=== PATIENT | male | born 1965 | race Caucasian/White ===

== ENCOUNTER 2016-12-19 17:08 | Inpatient (IN) | payer OTHER ==
[~2016-12-19] VITALS: Ht 172.7 cm; Wt 50.0 kg
[~2016-12-19 17:08] MED LIST: CARVEDILOL12.5 MG PO; COMBIVENT RESPIM4 GM IH; FOLIC ACID1 MG PO; FUROSEMIDE40 MG PO; HYDROCHLOROTHIA25 MG PO; LISINOPRIL40 MG PO; OCEAN NASAL 0.645 ML BOTH NARES; Ocean Nasal 0.65% BOTH NARES; VICODIN 5-3001 EACH PO; VITAMIN B-1100 MG PO
[2016-12-19 18:23] LABS: HEMATOCRIT 44.6 % (38.0-50.0); MCH 29.8 PG (29.0-34.0); MCV 90.5 FL (86-99); MEAN PLAT.VOLUME 9.9 uM^3 (9.0-12.4); PLATELET COUNT 283 K/uL (156-360); RBC DIS.WIDTH-CV 13.1 % (11.8-14.6); RBC DIS.WIDTH-SD 43.2 % (39-53); RED BLOOD COUNT 4.93 M/uL (4.00-5.50); WHITE BLOOD COUNT 10.3 K/uL (4.1-10.2)
[2016-12-19 18:34] LABS: CHLORIDE 109 mEq/L (99-109); POTASSIUM 3.9 mEq/L (3.7-5.4); SODIUM 141 mEq/L (136-147)
[2016-12-19 18:35] LABS: GLUCOSE 101 mg/dL (70-99)
[2016-12-19 18:37] LABS: ANION GAP 10 MEQ/L (2-14)
[2016-12-19 18:39] LABS: GFR ESTIMATE (CALCULATED) 53 mL/min/
[2016-12-19 18:40] LABS: UREA NITROGEN (BUN) 21 mg/dL (9-23)
[2016-12-19 18:45] LABS: TROP-I INTERPRETATION NEGATIVE; TROPONIN-I < 0.01 ng/mL (0.0-0.30)
[2016-12-20] VITALS (8 sets, daily range): BP systolic 129–198; BP diastolic 65–98
[2016-12-20 01:39] LABS: HDL CHOLESTEROL 41 MG/DL (Desirable>=40); LDL CHOLESTEROL 162 mg/dL (Desirable<100); NON-HDL CHOLESTEROL 197 mg/dL (Desirable<160); TOTAL CHOLESTEROL 238 mg/dL (Desirable<200); TRIGLYCERIDES 176 MG/DL (Normal: <150)
[2016-12-20 06:12] LABS: ADD MIUA? YES; BILIRUBIN NEGATIVE; BLOOD SMALL; COLOR STRAW ((YELLOW)); GLUCOSE (STRIP) NEGATIVE; KETONES NEGATIVE; LEUKOCYTES NEGATIVE; NITRITE NEGATIVE; PROTEIN (STRIP) NEGATIVE; SPECIFIC GRAVITY 1.006 (1.000-1.030); UROBILINOGEN 0.2 MG/DL (0.2-1.0)
[2016-12-20 06:18] LABS: BACTERIA NONE SEEN /HPF; EPITHELIAL CELLS NONE SEEN /HPF; MUCUS TRACE /LPF; RED BLOOD CELLS 0-5 /HPF (0-5); WHITE BLOOD CELLS 0-5 /HPF (0-5)
[2016-12-20 07:21] LABS: Estimated Average Glucose 103 mg/dL (70-123); HEMOGLOBIN A1c (GLYCOHEMOGLOB) 5.2 % HGB (Below 5.7)
[2016-12-20 07:22] LABS: HEMATOCRIT 39.4 % (38.0-50.0); MCH 30.5 PG (29.0-34.0); MCHC 32.7 G/DL (30.0-36.0); MCV 93.1 FL (86-99); MEAN PLAT.VOLUME 10.1 uM^3 (9.0-12.4); PLATELET COUNT 247 K/uL (156-360); RBC DIS.WIDTH-CV 13.2 % (11.8-14.6); RBC DIS.WIDTH-SD 44.8 % (39-53); RED BLOOD COUNT 4.23 M/uL (4.00-5.50); WHITE BLOOD COUNT 8.4 K/uL (4.1-10.2)
[2016-12-20 07:38] LABS: PTT 29.8 (25-32)
[2016-12-20 07:45] LABS: ALKALINE PHOSPHATASE 74 IU/L (3-129); ANION GAP 6 MEQ/L (2-14); CHLORIDE 111 MEQ/L (99-109); GFR ESTIMATE (CALCULATED) > 59 mL/min/; GLUCOSE 84 mg/dL (70-99); POTASSIUM 4.2 MEQ/L (3.7-5.4); SAMPLE HEMOLYSIS CHECK 0; SAMPLE ICTERIC CHECK 0; SAMPLE LIPEMIA CHECK 0; SODIUM 142 MEQ/L (136-147); TOTAL BILIRUBIN 0.4 MG/DL (0.0-1.0); UREA NITROGEN (BUN) 14 mg/dL (9-23)
[2016-12-21 03:25] VITALS: BP 171/83
[2016-12-21 05:28] LABS: HEMATOCRIT 36.7 % (38.0-50.0); MCHC 33.2 G/DL (30.0-36.0); MCV 93.4 FL (86-99); MEAN PLAT.VOLUME 10.1 uM^3 (9.0-12.4); PLATELET COUNT 235 K/uL (156-360); RBC DIS.WIDTH-CV 13.3 % (11.8-14.6); RED BLOOD COUNT 3.93 M/uL (4.00-5.50); WHITE BLOOD COUNT 7.8 K/uL (4.1-10.2)
[2016-12-21 07:21] LABS: ANION GAP 8 MEQ/L (2-14); CHLORIDE 111 MEQ/L (99-109); GFR ESTIMATE (CALCULATED) > 59 mL/min/; GLUCOSE 89 mg/dL (70-99); POTASSIUM 4.4 MEQ/L (3.7-5.4); SAMPLE HEMOLYSIS CHECK 0; SAMPLE ICTERIC CHECK 0; SAMPLE LIPEMIA CHECK 0; SODIUM 139 MEQ/L (136-147); UREA NITROGEN (BUN) 15 mg/dL (9-23)
[2016-12-21 07:23] VITALS: BP 162/82
[2016-12-21 10:59] VITALS: BP 162/76
[2016-12-21 15:39] VITALS: BP 173/84
[2016-12-21 19:42] VITALS: BP 183/83
[2016-12-22] VITALS (7 sets, daily range): BP systolic 130–151; BP diastolic 63–85
[2016-12-22 19:40] LABS: TROP-I INTERPRETATION NEGATIVE; TROPONIN-I < 0.01 ng/mL (0.0-0.30)
[2016-12-23 01:02] LABS: TROP-I INTERPRETATION NEGATIVE; TROPONIN-I < 0.01 ng/mL (0.0-0.30)
[2016-12-23 04:20] VITALS: BP 133/77
[2016-12-23 06:58] LABS: TROP-I INTERPRETATION NEGATIVE; TROPONIN-I < 0.01 ng/mL (0.0-0.30)
[2016-12-23 07:55] VITALS: BP 159/86
[2016-12-23] MEDS ORDERED: NICOTINE PATCH1 EAC2 TD (08:51)
[2016-12-23] MEDS ORDERED: LISINOPRIL20 MG PO (08:51)
[2016-12-23] MEDS ORDERED: CARVEDILOL12.5 MG PO (08:51)
[2016-12-23] MEDS ORDERED: ADVAIR HFA120 INHALA IH (08:51)
[2016-12-23] MEDS ORDERED: ASPIR-LOW81 MG PO (08:51)
[2016-12-23] MEDS ORDERED: PRAVASTATIN SOD40 MG PO (08:51)
[2016-12-23] MEDS ORDERED: AMLODIPINE BESYL5 MG PO (08:51)
== END 2016-12-23 10:45 | disposition home or self-care (01) | DRG 69 ==
LOC: EME 17:08 → EDOF 22:28 → 5SOUTH 22:28
PROVIDERS: Internal Medicine; Physician Assistant
DX: G45.9 Transient cerebral ischemic attack, unspecified (principal); I50.22 Chronic systolic (congestive) heart failure; Z68.1 Body mass index [BMI] 19.9 or less, adult; E44.0 Moderate protein-calorie malnutrition; E78.5 Hyperlipidemia, unspecified; Z86.73 Personal history of transient ischemic attack (TIA), and cerebral infarction without residual deficits; I25.10 Atherosclerotic heart disease of native coronary artery without angina pectoris; F17.211 Nicotine dependence, cigarettes, in remission; E78.00 Pure hypercholesterolemia, unspecified; F10.10 Alcohol abuse, uncomplicated; Z95.5 Presence of coronary angioplasty implant and graft; Z91.19 Patient's noncompliance with other medical treatment and regimen; I11.0 Hypertensive heart disease with heart failure
CPT/HCPCS: 70450; 70551; 71020; 80048; 80053; 80061; 80069; 81003; 83036; 84484; 85027; 85610; 85730; 92523 GN; 92610 GN; 93005; 93306; 93880; 94640; 94640 76; 99202; 99281; 99285; J1644; J7030; S0028